=== PATIENT | male | born 1990 | race African-American/Black ===

== ENCOUNTER 2017-02-24 16:56 | Emergency (ER) | payer SELFPAY | END 2017-02-24 17:55 | disposition home or self-care (01) | LOC: FER 16:56 | DX: T23.272A Burn of second degree of left wrist, initial encounter (principal); T31.0 Burns involving less than 10% of body surface; F17.210 Nicotine dependence, cigarettes, uncomplicated; X15.8XXA Contact with other hot household appliances, initial encounter; Y93.G2 Activity, grilling and smoking food; Y92.009 Unspecified place in unspecified non-institutional (private) residence as the place of occurrence of the external cause ==